=== PATIENT | male | born 1965 | race Caucasian/White ===

== ENCOUNTER → 2022-09-29 | Outpatient (CLI) | payer OTHER, SELFPAY ==
--- NOTE | 2022-09-29 07:24 | MRI_ITS ---
STUDY: MRI LEFT KNEE REASON FOR EXAM: Male, 57 years old. Pain. Question ACL injury. History of ACL graft. TECHNIQUE: Standardized fat and water weighted pulse sequences were obtained in all 3 orthogonal planes. COMPARISON: None. FINDINGS: Normal medial meniscus. Mild thinning of the articular cartilage of the medial femorotibial compartment (coronal series 6 images 12-19). Normal medial femoral condyle and tibial plateau. Normal medial collateral ligamentous complex (MCL). Normal distal semimembranosus, gracilis and semitendinosus tendons. Normal lateral meniscus. Mild thinning of the articular cartilage of the lateral femorotibial compartment (coronal series 6 images 12-18). Normal lateral femoral condyle and tibial plateau. Normal proximal tibiofibular articulation. Normal lateral collateral (fibular) ligament. Normal popliteus tendon. Normal biceps femoris tendon. Intact ACL graft (sagittal series 3 images 21-27, sagittal series 4 images 10-16, oblique coronal series 7 images 6-14). Normal posterior cruciate ligament (PCL). Normal congruent patellofemoral articulation. Normal hyaline cartilage of the patellofemoral compartment. Normal medial and lateral patellar retinaculum. Normal quadriceps tendon. Normal patellar tendon. Normal Hoffa''s fat pad. Joint effusion with medial and lateral plicae (axial series 2 image 6-16). Minimal prepatellar subcutaneous soft tissue edema (sagittal series 4 image 12). The otherwise visualized osseous structures are unremarkable. MRI/Lower Ext Joint Only (Routine) IMPRESSION: Mild thinning of the articular cartilage of the medial and lateral femorotibial compartments. Intact ACL graft. Minimal prepatellar subcutaneous soft tissue edema. Joint effusion with medial and lateral plicae. Electronically Signed: Milind Schmidt, at 13:52 EDT ,
--- NOTE | 2022-09-29 07:45 | RAD_ITS ---
STUDY: X-RAY - ORBITS REASON FOR EXAM: Male, 57 years old. Hx of metal in eyes, pre MRI clearance TECHNIQUE: 2 view(s) of the orbits were obtained. COMPARISON: None. FINDINGS: Normal bilateral orbits without a metallic orbital foreign body. Normal visualized facial bones. Normal paranasal sinuses. The soft tissue structures are unremarkable. RAD/Orbits for Foreign Body IMPRESSION: No demonstrated metallic orbital foreign body. The patient is cleared for an MRI examination. Electronically Signed: Herb Myers MD at 8:06 EDT ,
== END | disposition home or self-care (01) ==
LOC: MRI 07:14
PROVIDERS: Referring Provider Orthopaedic Surgery; Visit Provider Orthopaedic Surgery
DX: M17.12 Unilateral primary osteoarthritis, left knee (principal)
CPT/HCPCS: 70030; 73721